=== PATIENT | female | born 1940 | race Caucasian/White ===

== ENCOUNTER 2022-01-30 14:27 | Inpatient (IN) ==
[2022-01-30 15:23] LABS: Basophils % 0.1 % (0.0-0.8); Eosinophils % 0.1 % (0.00-10.9); Hematocrit 38.2 VOL% (35.7-47.0); Hemoglobin 12.7 GM/DL (12.0-16.0); Immature Granulocytes % 0.6 %; Lymphocytes % 6.7 % (21.3-54.2); Mean Corpuscular HGB Conc 33.2 GM/DL (32-36); Mean Corpuscular Volume 85.7 FL (87-102); Monocytes # 0.9 10*3/uL (0.11-0.8); Monocytes % 6.1 % (1.7-12.7); Neutrophils % 86.4 % (38.7-73.9); Platelet Count 365 T/CUMM (130-400); Red Blood Count 4.46 MC/CUMM (3.8-5.5); Red Cell Distribution Width 13.6 % (9.3-17.3); White Blood Count 15.5 T/CUMM (4-12)
[2022-01-30 15:28] LABS: Albumin 3.8 G/DL (3.4-5.0); Bilirubin,Total 0.8 MG/DL (0.20-1.00); Calcium 9.6 MG/DL (8.5-10.1); Osmolality,Calculated 268.5 MOS/KG (273-304); Potassium 2.7 MMOL/L (3.5-5.1)
[2022-01-30 16:19] LABS: INR 0.9; PT Patient Result 10.5 SECS (10.1-12.1); Partial Thromboplastin Time 27.6 SECS (23.7-32.9)
[2022-01-30] MEDS ORDERED: POTASSIUM CHLORIDE RIDER 20 MEQ/100 ML PREMIX IV STA (18:09)
[2022-01-30] MEDS ORDERED: POTASSIUM CHLORIDE 20 MEQ TABLET PO PRN (18:09)
[2022-01-30] MEDS ORDERED: GLUCAGON 1 MG VIAL IM PRN (18:23)
[2022-01-30] MEDS ORDERED: ACETAMINOPHEN 325 MG TABLET PO PRN (18:23)
[2022-01-30] MEDS ORDERED: FUROSEMIDE 20 MG TABLET PO PRN (18:26)
[2022-01-30] MEDS ORDERED: DEXTROSE 10% 250 ML BAG IV PRN (18:37)
[2022-01-30 18:38] LABS: Bacteria,Urine Occasional /HPF (Few); Hyaline Casts,Urine 4 /LPF (0-3); RBC,Urine 2 /HPF (0-4)
[2022-01-30] MEDS ORDERED: ESCITALOPRAM 10 MG TABLET PO PRN (18:38)
[2022-01-30 18:41] LABS: Bilirubin,Urine Negative (Negative); Blood, Urine Negative (Negative); Glucose,Urine (UA) Negative (Negative); Ketones,Urine Negative (Negative); Nitrite,Urine Negative (Negative); Protein,Urine Negative (Negative); Urine Appearance Clear (Clear); Urine Color Yellow (Yellow); Urine Specific Gravity 1.015 (1.001-1.035); Urine Urobilinogen 0.2 eU/dL (<2.0); Urine pH 6.5 (4.5-8.0)
[2022-01-30] MEDS ORDERED: hydrALAZINE 20 MG/1 ML VIAL IV PRN (19:43)
[2022-01-30] MEDS: SODIUM CHLORIDE 0.9% 1,000 ML IV SCH (20:30)
[2022-01-30] MEDS: POTASSIUM CHLORIDE RIDER 10 MEQ/100 ML PREMIX IV SCH ×2 (20:33→22:12)
[2022-01-30] MEDS: PREGABALIN 75 MG CAPSULE PO SCH (20:33)
[2022-01-30] MEDS: ERGOCALCIFEROL 50,000 UNIT CAPSULE PO SCH (20:34)
[2022-01-30] MEDS: DULoxetine 30 MG CAPSULE PO SCH (20:34)
[2022-01-30] MEDS: DOCUSATE SODIUM 100 MG CAPSULE PO SCH (20:35)
[2022-01-30] MEDS: INSULIN REGULAR 100 UNIT/ML SUBCUT SCH (20:35)
[2022-01-30] MEDS: ATORVASTATIN 40 MG TABLET PO SCH (20:35)
[2022-01-30] MEDS: carvediloL 6.25 MG TABLET PO SCH (20:35)
[2022-01-30] MEDS ORDERED: MAGNESIUM SULF RIDER 2 GM/50 ML PREMIX IV PRN (23:05)
[2022-01-30] MEDS ORDERED: MAGNESIUM SULF RIDER 4 GM/100 ML PREMIX IV PRN (23:05)
[2022-01-30] MEDS ORDERED: POTASSIUM CHLORIDE 20 MEQ TABLET PO ONE (23:30)
[2022-01-30] MEDS ORDERED: LACTATED RINGERS 1,000 ML IV ONE (23:30)
[2022-01-30] MEDS ORDERED: SODIUM CHLORIDE 0.9% 1,000 ML IV SCH (23:30)
[2022-01-30] MEDS: PIPERACILLIN/TAZOBACTAM 3,375 MG in SODIUM CHLORIDE 0.9% 100 ML IV SCH (23:36)
[2022-01-31 02:15] LABS: Basophils % 0.2 % (0.0-0.8); Eosinophils # 0.1 10*3/uL (0.0-0.87); Eosinophils % 1.1 % (0.00-10.9); Hematocrit 33.5 VOL% (35.7-47.0); Immature Granulocytes % 0.3 %; Immature Granulocytes Absolute 0.04 #; Lymphocytes # 1.7 10*3/uL (1.4-4.0); Lymphocytes % 13.7 % (21.3-54.2); Mean Corpuscular HGB Conc 32.8 GM/DL (32-36); Mean Corpuscular Volume 86.8 FL (87-102); Mean Platelet Volume 9.8 FL (9.6-12.0); Monocytes # 0.9 10*3/uL (0.11-0.8); Monocytes % 7.3 % (1.7-12.7); Neutrophils % 77.4 % (38.7-73.9); Platelet Count 312 T/CUMM (130-400); Red Blood Count 3.86 MC/CUMM (3.8-5.5); Red Cell Distribution Width 13.8 % (9.3-17.3); White Blood Count 12.1 T/CUMM (4-12)
[2022-01-31 02:47] LABS: Albumin 2.9 G/DL (3.4-5.0); Bilirubin,Total 0.5 MG/DL (0.20-1.00); Calcium 8.7 MG/DL (8.5-10.1); Osmolality,Calculated 261.9 MOS/KG (273-304); Potassium 2.9 MMOL/L (3.5-5.1); Total Protein 6.2 G/DL (6.4-8.2)
[2022-01-31 02:48] LABS: Risk Ratio 1.63; VLDL Cholesterol 16.2 MG/DL
[2022-01-31] MEDS: ONDANSETRON 4 MG/2 ML VIAL IV PRN ×3 (03:45→14:11)
[2022-01-31] MEDS: POTASSIUM CHLORIDE 20 MEQ TABLET PO SCH ×3 (07:01→14:11)
[2022-01-31] MEDS: INSULIN REGULAR 100 UNIT/ML SUBCUT SCH ×4 (09:18→20:49)
[2022-01-31] MEDS: PANTOPRAZOLE 40 MG TABLET PO SCH (09:22)
[2022-01-31] MEDS: PREGABALIN 75 MG CAPSULE PO SCH ×2 (09:22→20:33)
[2022-01-31] MEDS: carvediloL 6.25 MG TABLET PO SCH ×2 (09:22→18:02)
[2022-01-31] MEDS: PIPERACILLIN/TAZOBACTAM 3,375 MG in SODIUM CHLORIDE 0.9% 100 ML IV SCH ×3 (09:23→23:02)
[2022-01-31] MEDS: DOCUSATE SODIUM 100 MG CAPSULE PO SCH ×2 (09:23→20:34)
[2022-01-31] MEDS: DULoxetine 30 MG CAPSULE PO SCH (20:34)
[2022-01-31] MEDS: ATORVASTATIN 40 MG TABLET PO SCH (20:34)
[2022-02-01 06:35] LABS: Basophils % 0.2 % (0.0-0.8); Eosinophils # 0.3 10*3/uL (0.0-0.87); Eosinophils % 2.3 % (0.00-10.9); Hematocrit 34.9 VOL% (35.7-47.0); Hemoglobin 10.9 GM/DL (12.0-16.0); Immature Granulocytes % 0.6 %; Immature Granulocytes Absolute 0.08 #; Lymphocytes # 1.4 10*3/uL (1.4-4.0); Lymphocytes % 10.3 % (21.3-54.2); Mean Corpuscular HGB Conc 31.2 GM/DL (32-36); Mean Corpuscular Volume 91.1 FL (87-102); Mean Platelet Volume 10.3 FL (9.6-12.0); Neutrophils % 79.6 % (38.7-73.9); Platelet Count 293 T/CUMM (130-400); Red Blood Count 3.83 MC/CUMM (3.8-5.5); Red Cell Distribution Width 13.8 % (9.3-17.3)
[2022-02-01 06:50] LABS: Calcium 9.1 MG/DL (8.5-10.1); Osmolality,Calculated 275.1 MOS/KG (273-304); Potassium 4.8 MMOL/L (3.5-5.1)
[2022-02-01] MEDS: INSULIN REGULAR 100 UNIT/ML SUBCUT SCH ×4 (07:10→20:26)
[2022-02-01] MEDS: PIPERACILLIN/TAZOBACTAM 3,375 MG in SODIUM CHLORIDE 0.9% 100 ML IV SCH ×3 (09:07→22:56)
[2022-02-01] MEDS: PANTOPRAZOLE 40 MG TABLET PO SCH (09:08)
[2022-02-01] MEDS: LOSARTAN 25 MG TABLET PO SCH (09:08)
[2022-02-01] MEDS: PREGABALIN 75 MG CAPSULE PO SCH ×2 (09:08→20:25)
[2022-02-01] MEDS: carvediloL 6.25 MG TABLET PO SCH ×2 (09:08→16:40)
[2022-02-01] MEDS: DOCUSATE SODIUM 100 MG CAPSULE PO SCH ×2 (09:08→20:25)
[2022-02-01] MEDS: SODIUM CHLORIDE 0.9% 1,000 ML IV SCH ×2 (16:39)
[2022-02-01] MEDS: ATORVASTATIN 40 MG TABLET PO SCH (20:25)
[2022-02-01] MEDS: DULoxetine 30 MG CAPSULE PO SCH (20:25)
[2022-02-02 05:27] LABS: Basophils % 0.2 % (0.0-0.8); Eosinophils # 0.4 10*3/uL (0.0-0.87); Eosinophils % 3.9 % (0.00-10.9); Hematocrit 32.8 VOL% (35.7-47.0); Hemoglobin 10.3 GM/DL (12.0-16.0); Immature Granulocytes % 0.7 %; Immature Granulocytes Absolute 0.07 #; Lymphocytes # 1.7 10*3/uL (1.4-4.0); Lymphocytes % 16.4 % (21.3-54.2); Mean Corpuscular HGB Conc 31.4 GM/DL (32-36); Mean Corpuscular Volume 91.6 FL (87-102); Mean Platelet Volume 10.2 FL (9.6-12.0); Monocytes # 0.9 10*3/uL (0.11-0.8); Monocytes % 8.5 % (1.7-12.7); Neutrophils % 70.3 % (38.7-73.9); Platelet Count 271 T/CUMM (130-400); Red Blood Count 3.58 MC/CUMM (3.8-5.5); Red Cell Distribution Width 13.9 % (9.3-17.3); White Blood Count 10.5 T/CUMM (4-12)
[2022-02-02 05:50] LABS: Calcium 8.7 MG/DL (8.5-10.1); Osmolality,Calculated 272.2 MOS/KG (273-304); Potassium 4.4 MMOL/L (3.5-5.1)
[2022-02-02] MEDS: INSULIN REGULAR 100 UNIT/ML SUBCUT SCH ×4 (07:15→21:55)
[2022-02-02] MEDS: SODIUM CHLORIDE 0.9% 1,000 ML IV SCH (07:15)
[2022-02-02] MEDS: carvediloL 6.25 MG TABLET PO SCH ×2 (08:03→17:02)
[2022-02-02] MEDS: PIPERACILLIN/TAZOBACTAM 3,375 MG in SODIUM CHLORIDE 0.9% 100 ML IV SCH ×2 (08:04→17:02)
[2022-02-02] MEDS: PREGABALIN 75 MG CAPSULE PO SCH ×2 (08:04→21:10)
[2022-02-02] MEDS: PANTOPRAZOLE 40 MG TABLET PO SCH (08:04)
[2022-02-02] MEDS: LOSARTAN 25 MG TABLET PO SCH (08:04)
[2022-02-02] MEDS: DOCUSATE SODIUM 100 MG CAPSULE PO SCH ×2 (08:04→21:10)
[2022-02-02] MEDS ORDERED: BUPIVACAINE 0.5% 50 ML VIAL ONE (12:25)
[2022-02-02] MEDS ORDERED: SUCCINYLCHOLINE 200 MG/10 ML VIAL ONE (12:31)
[2022-02-02] MEDS ORDERED: ETOMIDATE 40 MG/20 ML VIAL IV ONE (12:31)
[2022-02-02] MEDS ORDERED: propofoL 200 MG/20 ML VIAL IV ONE (12:31)
[2022-02-02] MEDS ORDERED: DEXAMETHASONE 4 MG/1 ML VIAL ONE (12:31)
[2022-02-02] MEDS ORDERED: ONDANSETRON 4 MG/2 ML VIAL ONE (12:31)
[2022-02-02] MEDS ORDERED: ROCURONIUM 50 MG/5 ML VIAL IV ONE (12:31)
[2022-02-02] MEDS ORDERED: ceFAZolin 1,000 MG VIAL ONE (13:34)
[2022-02-02] MEDS ORDERED: LACTATED RINGERS 1,000 ML IV ONE (13:56)
[2022-02-02] MEDS ORDERED: PHENYLEPHRINE 1 MG/10 ML SYRINGE IV ONE (13:56)
[2022-02-02] MEDS ORDERED: CALCIUM CHLORIDE 1,000 MG/10 ML VIAL IV ONE (13:56)
[2022-02-02] MEDS ORDERED: TRANEXAMIC ACID 1,000 MG/10 ML VIAL ONE (13:56)
[2022-02-02] MEDS ORDERED: SODIUM CHLORIDE 0.9% 100 ML IV ONE (13:56)
[2022-02-02] MEDS ORDERED: SEVOFLURANE 1 UNIT/15 MINUTE INH ONE (13:56)
[2022-02-02] MEDS ORDERED: NEOSTIGMINE 10 MG/10 ML VIAL ONE (14:16)
[2022-02-02] MEDS ORDERED: GLYCOPYRROLATE 0.4 MG/2 ML VIAL ONE (15:02)
[2022-02-02] MEDS ORDERED: ACETAMINOPHEN INJ 1,000 MG/100 ML VIAL IV ONE (15:06)
[2022-02-02 16:10] LABS: Hematocrit 35.6 VOL% (35.7-47.0); Hemoglobin 11.1 GM/DL (12.0-16.0)
[2022-02-02] MEDS: ATORVASTATIN 40 MG TABLET PO SCH (21:10)
[2022-02-02] MEDS: DULoxetine 30 MG CAPSULE PO SCH (21:10)
[2022-02-03] MEDS: PIPERACILLIN/TAZOBACTAM 3,375 MG in SODIUM CHLORIDE 0.9% 100 ML IV SCH ×2 (00:11→09:01)
[2022-02-03 05:04] LABS: Hematocrit 33.4 VOL% (35.7-47.0); Hemoglobin 10.9 GM/DL (12.0-16.0)
[2022-02-03 05:06] LABS: Basophils % 0.1 % (0.0-0.8); Hematocrit 33.2 VOL% (35.7-47.0); Hemoglobin 10.8 GM/DL (12.0-16.0); Immature Granulocytes % 0.7 %; Immature Granulocytes Absolute 0.09 #; Lymphocytes # 0.7 10*3/uL (1.4-4.0); Lymphocytes % 5.8 % (21.3-54.2); Mean Corpuscular HGB Conc 32.5 GM/DL (32-36); Mean Corpuscular Volume 88.1 FL (87-102); Monocytes # 0.6 10*3/uL (0.11-0.8); Monocytes % 5.3 % (1.7-12.7); Neutrophils % 88.1 % (38.7-73.9); Platelet Count 353 T/CUMM (130-400); Red Blood Count 3.77 MC/CUMM (3.8-5.5); Red Cell Distribution Width 13.7 % (9.3-17.3); White Blood Count 12.1 T/CUMM (4-12)
[2022-02-03 05:18] LABS: Calcium 9.5 MG/DL (8.5-10.1); Osmolality,Calculated 271.2 MOS/KG (273-304); Potassium 4.2 MMOL/L (3.5-5.1)
[2022-02-03] MEDS: PREGABALIN 75 MG CAPSULE PO SCH ×2 (08:47→20:40)
[2022-02-03] MEDS: PANTOPRAZOLE 40 MG TABLET PO SCH (08:47)
[2022-02-03] MEDS: CLOPIDOGREL 75 MG TABLET PO SCH (08:47)
[2022-02-03] MEDS: DOCUSATE SODIUM 100 MG CAPSULE PO SCH ×2 (08:48→20:40)
[2022-02-03] MEDS: LOSARTAN 25 MG TABLET PO SCH ×2 (08:48→08:55)
[2022-02-03] MEDS: carvediloL 6.25 MG TABLET PO SCH ×2 (08:48→17:47)
[2022-02-03] MEDS: ENOXAPARIN 40 MG/0.4 ML SYRINGE SUBCUT SCH (08:49)
[2022-02-03] MEDS: INSULIN REGULAR 100 UNIT/ML SUBCUT SCH ×4 (09:00→20:46)
[2022-02-03] MEDS ORDERED: DEXTROSE 50% 25 GM/50 ML VIAL IV PRN (09:07)
[2022-02-03] MEDS ORDERED: GLUCAGON 1 MG VIAL IM PRN (09:07)
[2022-02-03] MEDS: SODIUM CHLORIDE 0.9% 1,000 ML IV SCH (14:55)
[2022-02-03] MEDS: cefTRIAXone 1,000 MG in SODIUM CHLORIDE 0.9% 100 ML IV SCH (14:56)
[2022-02-03] MEDS ORDERED: TUBERCULIN SKIN TEST 0.1 ML SYRINGE INTRADERM ONE (14:57)
[2022-02-03] MEDS: DULoxetine 30 MG CAPSULE PO SCH (20:40)
[2022-02-03] MEDS: ATORVASTATIN 40 MG TABLET PO SCH (20:40)
[2022-02-04 05:03] LABS: Basophils % 0.2 % (0.0-0.8); Eosinophils # 0.2 10*3/uL (0.0-0.87); Hematocrit 28.7 VOL% (35.7-47.0); Hemoglobin 9.2 GM/DL (12.0-16.0); Immature Granulocytes % 0.6 %; Immature Granulocytes Absolute 0.06 #; Lymphocytes # 1.5 10*3/uL (1.4-4.0); Lymphocytes % 14.3 % (21.3-54.2); Mean Corpuscular HGB Conc 32.1 GM/DL (32-36); Mean Corpuscular Volume 90.5 FL (87-102); Mean Platelet Volume 9.9 FL (9.6-12.0); Monocytes # 0.9 10*3/uL (0.11-0.8); Monocytes % 9.2 % (1.7-12.7); Neutrophils % 73.7 % (38.7-73.9); Platelet Count 298 T/CUMM (130-400); Red Blood Count 3.17 MC/CUMM (3.8-5.5); Red Cell Distribution Width 13.7 % (9.3-17.3); White Blood Count 10.2 T/CUMM (4-12)
[2022-02-04 05:20] LABS: Calcium 8.6 MG/DL (8.5-10.1); Osmolality,Calculated 269.4 MOS/KG (273-304); Potassium 3.9 MMOL/L (3.5-5.1)
[2022-02-04] MEDS: PANTOPRAZOLE 40 MG TABLET PO SCH (09:16)
[2022-02-04] MEDS: PREGABALIN 75 MG CAPSULE PO SCH ×2 (09:16→21:03)
[2022-02-04] MEDS: INSULIN REGULAR 100 UNIT/ML SUBCUT SCH ×4 (09:16→22:39)
[2022-02-04] MEDS: GLIMEPIRIDE 2 MG TABLET PO SCH (09:16)
[2022-02-04] MEDS: DOCUSATE SODIUM 100 MG CAPSULE PO SCH ×2 (09:16→21:03)
[2022-02-04] MEDS: CLOPIDOGREL 75 MG TABLET PO SCH (09:16)
[2022-02-04] MEDS: ENOXAPARIN 40 MG/0.4 ML SYRINGE SUBCUT SCH (09:18)
[2022-02-04] MEDS: carvediloL 6.25 MG TABLET PO SCH (09:51)
[2022-02-04] MEDS: carvediloL 3.125 MG TABLET PO SCH ×2 (09:51→16:38)
[2022-02-04] MEDS ORDERED: MAGNESIUM SULF RIDER 4 GM/100 ML PREMIX IV ONE (10:30)
[2022-02-04] MEDS ORDERED: COSYNTROPIN 0.25 MG VIAL IV ONE (13:30)
[2022-02-04] MEDS: cefTRIAXone 1,000 MG in SODIUM CHLORIDE 0.9% 100 ML IV SCH (16:36)
[2022-02-04] MEDS: SODIUM CHLORIDE 0.9% 1,000 ML IV SCH ×2 (16:48→16:49)
[2022-02-04] MEDS: ATORVASTATIN 40 MG TABLET PO SCH (21:03)
[2022-02-04] MEDS: DULoxetine 30 MG CAPSULE PO SCH (21:03)
[2022-02-05 04:50] LABS: Basophils % 0.3 % (0.0-0.8); Eosinophils # 0.2 10*3/uL (0.0-0.87); Eosinophils % 1.5 % (0.00-10.9); Hemoglobin 9.4 GM/DL (12.0-16.0); Immature Granulocytes % 0.7 %; Immature Granulocytes Absolute 0.08 #; Lymphocytes # 1.2 10*3/uL (1.4-4.0); Lymphocytes % 9.8 % (21.3-54.2); Mean Corpuscular HGB Conc 32.4 GM/DL (32-36); Mean Corpuscular Volume 88.1 FL (87-102); Mean Platelet Volume 9.8 FL (9.6-12.0); Monocytes # 1.1 10*3/uL (0.11-0.8); Monocytes % 9.4 % (1.7-12.7); Neutrophils % 78.3 % (38.7-73.9); Platelet Count 318 T/CUMM (130-400); Red Blood Count 3.29 MC/CUMM (3.8-5.5); Red Cell Distribution Width 13.6 % (9.3-17.3); White Blood Count 11.7 T/CUMM (4-12)
[2022-02-05 05:05] LABS: Calcium 8.4 MG/DL (8.5-10.1); Osmolality,Calculated 260.8 MOS/KG (273-304); Potassium 3.6 MMOL/L (3.5-5.1)
[2022-02-05] MEDS: SODIUM CHLORIDE 0.9% 1,000 ML IV SCH ×2 (06:12→18:10)
[2022-02-05] MEDS: CLOPIDOGREL 75 MG TABLET PO SCH (08:22)
[2022-02-05] MEDS: GLIMEPIRIDE 2 MG TABLET PO SCH (08:22)
[2022-02-05] MEDS: DOCUSATE SODIUM 100 MG CAPSULE PO SCH ×2 (08:22→21:21)
[2022-02-05] MEDS: PREGABALIN 75 MG CAPSULE PO SCH ×2 (08:22→21:21)
[2022-02-05] MEDS: PANTOPRAZOLE 40 MG TABLET PO SCH (08:22)
[2022-02-05] MEDS: carvediloL 3.125 MG TABLET PO SCH ×2 (08:22→16:32)
[2022-02-05] MEDS: INSULIN REGULAR 100 UNIT/ML SUBCUT SCH ×4 (08:23→21:22)
[2022-02-05] MEDS: ENOXAPARIN 40 MG/0.4 ML SYRINGE SUBCUT SCH (08:23)
[2022-02-05] MEDS ORDERED: ZINC OXIDE PASTE 113 GM TUBE TOP PRN (12:03)
[2022-02-05 14:06] LABS: % Iron Saturation 9.7 % (18-50)
[2022-02-05] MEDS: ATORVASTATIN 40 MG TABLET PO SCH (21:21)
[2022-02-05] MEDS: DULoxetine 30 MG CAPSULE PO SCH (21:21)
[2022-02-06 02:27] LABS: Folate 11.42 NG/ML (5.38-24.0)
[2022-02-06 05:29] LABS: Basophils % 0.2 % (0.0-0.8); Eosinophils # 0.2 10*3/uL (0.0-0.87); Eosinophils % 2.1 % (0.00-10.9); Hematocrit 27.8 VOL% (35.7-47.0); Immature Granulocytes Absolute 0.09 #; Lymphocytes # 1.2 10*3/uL (1.4-4.0); Lymphocytes % 13.2 % (21.3-54.2); Mean Corpuscular HGB Conc 32.4 GM/DL (32-36); Mean Corpuscular Volume 88.3 FL (87-102); Mean Platelet Volume 9.9 FL (9.6-12.0); Monocytes % 10.2 % (1.7-12.7); Neutrophils % 73.3 % (38.7-73.9); Platelet Count 360 T/CUMM (130-400); Red Blood Count 3.15 MC/CUMM (3.8-5.5); Red Cell Distribution Width 13.8 % (9.3-17.3); White Blood Count 9.3 T/CUMM (4-12)
[2022-02-06 05:53] LABS: Calcium 8.1 MG/DL (8.5-10.1); Osmolality,Calculated 266.2 MOS/KG (273-304); Potassium 3.4 MMOL/L (3.5-5.1)
[2022-02-06] MEDS: INSULIN REGULAR 100 UNIT/ML SUBCUT SCH ×2 (07:41→11:07)
[2022-02-06] MEDS: DOCUSATE SODIUM 100 MG CAPSULE PO SCH (08:38)
[2022-02-06] MEDS: PREGABALIN 75 MG CAPSULE PO SCH (08:38)
[2022-02-06] MEDS: carvediloL 3.125 MG TABLET PO SCH (08:38)
[2022-02-06] MEDS: GLIMEPIRIDE 2 MG TABLET PO SCH (08:38)
[2022-02-06] MEDS: ERGOCALCIFEROL 50,000 UNIT CAPSULE PO SCH (08:39)
[2022-02-06] MEDS: PANTOPRAZOLE 40 MG TABLET PO SCH (08:39)
[2022-02-06] MEDS: CLOPIDOGREL 75 MG TABLET PO SCH (08:39)
[2022-02-06] MEDS: ENOXAPARIN 40 MG/0.4 ML SYRINGE SUBCUT SCH (08:41)
[2022-02-06] MEDS ORDERED: POTASSIUM CHLORIDE 20 MEQ TABLET PO ONE (09:49)
[2022-02-06] MEDS ORDERED: CYANOCOBALAMIN 1000 MCG/1 ML VIAL SUBCUT SCH (10:00)
[2022-02-06 11:15] VITALS: BP 125/59
== END 2022-02-06 11:32 | disposition swing bed (61) | DRG 522 ==
LOC: N.ED 14:27 → N.EDINP 18:21 → N.3E 18:51
PROVIDERS: ADMIT Internal Medicine; ATTEND Internal Medicine